=== PATIENT | male | born 1965 | race Hispanic/Latino ===

== ENCOUNTER 2017-12-12 20:44 | Emergency (ER) | payer SELFPAY ==
[~2017-12-12] VITALS: Ht 172.7 cm; Wt 93.0 kg
[2017-12-12 21:52] LABS: BASOPHILS # (AUTO) 0.1 (0.0-0.1); BASOPHILS % 0.7 % (0.0-1.0); EOSINOPHILS # (AUTO) 0.7 (0.0-0.4); EOSINOPHILS % 9.6 % (0.0-6.0); HEMATOCRIT 46.5 % (38.2-49.6); LYMPHOCYTES # (AUTO) 1.8 (1.0-3.2); LYMPHOCYTES % 24.7 % (18.0-39.1); MEAN CORPUSCULAR HGB CONC 34.4 g/dL (31-35); MEAN CORPUSCULAR VOLUME 81.3 fL (81-99); MONOCYTES # (AUTO) 0.6 (0.2-0.8); MONOCYTES % 8.1 % (4.4-11.3); NEUTROPHILS # (AUTO) 4.1 (2.1-6.9); NEUTROPHILS % 56.4 % (38.7-80.0); PLATELET COUNT 248 x10e3/uL (140-360); RED BLOOD COUNT 5.72 x10e6/uL (4.3-5.7); RED CELL DISTRIBUTION WIDTH 13.3 % (11.7-14.4)
[2017-12-12 22:11] LABS: ALANINE AMINOTRANSFERASE 25 IU/L (0-55); ALBUMIN 3.9 g/dL (3.5-5.0); ALBUMIN/GLOBULIN RATIO 1.1 (0.8-2.0); ALKALINE PHOSPHATASE 109 IU/L (40-150); ANION GAP 13.4 mmol/L (8-16); BLOOD UREA NITROGEN 13 mg/dL (7-26); BUN/CREATININE RATIO 14 (6-25); CALCIUM 9.5 mg/dL (8.4-10.2); CARBON DIOXIDE 27 mmol/L (22-29); CHLORIDE 100 mmol/L (98-107); CREATININE, SERUM 0.93 mg/dL (0.72-1.25); EST GLOMERULAR FILTRATION RATE > 60 ML/MIN (60-); GLUCOSE 253 mg/dL (74-118); POTASSIUM 4.4 mmol/L (3.5-5.1); SODIUM 136 mmol/L (136-145)
[2017-12-12 22:36] LABS: BILIRUBIN,URINE NEGATIVE (NEGATIVE); CLARITY,URINE CLOUDY (CLEAR); COLOR,URINE YELLOW (YELLOW); KETONES,URINE NEGATIVE (NEGATIVE); LEUKOCYTE ESTERASE ,URINE NEGATIVE (NEGATIVE); NITRITE,URINE NEGATIVE (NEGATIVE); PROTEIN,URINE DIPSTICK NEGATIVE (NEGATIVE); URINE UROBILINOGEN 0.2 mg/dL (0.2 - 1)
[2017-12-12 22:48] LABS: AMORPHOUS SEDIMENT,URINE MANY (FEW)
[2017-12-12 22:49] LABS: BACTERIA,URINE RARE /HPF
--- NOTE | 2017-12-12 22:49 | Diagnostic Imaging Report ---
History:High blood sugar Comparison studies:None Technique: Axial images were obtained from the skull base to the vertex. Coronal and sagittal images reconstructed from the axial data. Intravenous contrast: None Dose modulation, iterative reconstruction, and/or weight based adjustment of the mA/kV was utilized to reduce the radiation dose to as low as reasonably achievable. Findings: Scalp/skull: No abnormalities. Extra-axial spaces: No masses. No fluid collections. Brain sulci: Age-appropriate. Ventricles: Age-appropriate. No hydrocephalus. Parenchyma: Few small hypodensities in the supratentorial white matter are small vessel ischemic changes. Small chronic lacunar infarct at the left putamen No masses, hemorrhage, acute or chronic cortical vascular insults. Sellar/suprasellar region: No abnormalities. Craniocervical junction: Patent foramen magnum. No Chiari one malformation. Incidental findings: Atherosclerotic calcifications in the carotid siphons . Impression: No acute abnormalities. Chronic findings: 1. Mild supratentorial white matter small vessel ischemic changes. Signed by: DR Travis Christopher M.D. on 12/12/2017 10:45 PM
--- NOTE | 2017-12-12 23:06 | Diagnostic Imaging Report ---
EXAMINATION: CHEST 2 VIEWS INDICATION: Headache, nausea, dizziness COMPARISON: None FINDINGS: TUBES and LINES: None. LUNGS: Lungs are well inflated. Lungs are clear. There is no evidence of pneumonia or pulmonary edema. PLEURA: No pleural effusion or pneumothorax. HEART AND MEDIASTINUM: The cardiomediastinal silhouette is unremarkable. BONES AND SOFT TISSUES: No acute osseous lesion. Soft tissues are unremarkable. UPPER ABDOMEN: No free air under the diaphragm. IMPRESSION: No acute thoracic abnormality. Signed by: Dr. Gray Valerio M.D. on 12/12/2017 11:02 PM
[2017-12-13] MEDS ORDERED: SODIUM CHLORIDE 0.9% 1000ML 1,000 ML ONE (01:48)
[2017-12-13] MEDS ORDERED: SODIUM CHLORIDE 0.9% 1000ML 1,000 ML IV ONE (02:00)
== END 2017-12-13 02:11 | disposition home or self-care (01) ==
LOC: ER 20:44
DX: G44.1 Vascular headache, not elsewhere classified (principal); E11.65 Type 2 diabetes mellitus with hyperglycemia; E78.5 Hyperlipidemia, unspecified; Z79.84 Long term (current) use of oral hypoglycemic drugs
CPT/HCPCS: 36415; 70450; 71046; 80053; 81001; 85025; 99283; J7030

== ENCOUNTER 2019-07-27 20:16 | Emergency (ER) | payer SELFPAY ==
[~2019-07-27] VITALS: Ht 172.7 cm; Wt 93.0 kg
--- OUTSIDE RECORDS SUMMARY | 2019-07-27 20:18 | XMS REPORT | Clinical Summary ---
Author Author [facility] ict Organization [facility] ict Address Unknown Phone Unavailable Care Team Providers Care Mergers And Acquisitions Attorney Name Role Phone PCP Unavailable Allergies No Known Allergies Medications End Date Status Medication Sig Dispensed Refills Start Date Active ibuprofen (MOTRIN) 800 mg Take 1 tablet 30 tablet 0 tabletIndications: by mouth 9 Epigastric pain every 6 hours as needed for Pain. Active Problems Not on file Social History Date Tobacco Use Types Packs/Day Years Used Never Assessed Sex Assigned at Date Recorded Not on file Industry Job Start Date Occupation Not on file Not on file Not on file Travel End Travel History Travel Start No recent travel history available. Last Filed Vital Signs Not on file Plan of Treatment Health Maintenance Due Date Last Done Comments Colorectal Cancer Scrn 2015 Annual (FIT/FOBT) Age 50 to 75 IMM Influenza Seasonal 12/13/2019Dec to May (>/= 19 yrs) Results Not on fileafter 07/26/2018 Insurance Type Payer Benefit Subscriber ID Effective Phone Address Plan / Dates Group [facility] SELF-PAY SELF-PAY xxxxxxxxx 2018- [phone] [id number] [place] [address]
--- OUTSIDE RECORDS SUMMARY | 2019-07-27 20:18 | XMS REPORT ---
Author Author [facility] t Organization [facility] Address [address] [place] [address] Phone Unavailable Care Team Providers Care Environmental Monitoring Technician Name Role Phone NO, PCP PCP Unavailable Violeta NEGRON Attphys Unavailable Problems This patient has no known problems. Allergies, Adverse Reactions, Alerts This patient has no known allergies or adverse reactions. Social History Social Habit Start Date Stop Date Quantity Comments Source Sex Assigned At [facility] Medications Ordered Medication Name Filled Medication Name Start Date Stop Da te Current Medication? Ordering Clinician Indication Dosage Frequency Signature (SIG) Comments Components Source ibuprofen (MOTRIN) 800 mg tablet 2018-04-24 00:00:00 Yes [id number] 800mg Take 1 tablet by mouth every 6 hours as needed for Pain. [facility] Procedures Procedure Date / Time Performed Performing Clinician [facility] e Computed tomography of brain without radiopaque contrast 201 10-21-00 00:00:00 SAIMA NEGRON [facility] X-ray of chest, two views 2017-12-12 00:00:00 MEJIA NEGRON [facility] Plan of Care Planned Activity Planned Date Details Comments Source Future Scheduled Test 2019-12-13 00:00:00 IMM Influenza Seas onal Dec to May (>/= 19 yrs) [code = IMM Influenza Seasonal Dec to May (>/= 19 yrs)] [facility] Future Scheduled Test 2015 00:00:00 Colorectal Cancer Scrn Annual (FIT/FOBT) Age 50 to 75 [code = Colorectal Cancer Scrn Annual (FIT/FOBT) Age 50 to 75] [facility] Encounters Start Date/Time End Date/Time Encounter Type Admission Type Attendi [facility] Care Department Encounter ID Source 2018-08-01 00:00:00 2018-08-01 00:00:00 Outpatient [facility] [id number] [facility] 2018-04-23 23:30:01 2018-04-23 23:30:01 Emergency [facility] [id number] [facility] 2018-04-23 21:02:51 2018-04-23 21:02:51 Emergency [facility] [id number] [facility] 2018-04-23 19:02:19 2018-04-23 19:02:19 Emergency [facility] [id number] [facility] 2017-12-12 20:44:00 2017-12-13 02:11:00 Departed Emergency Room 1 SAIMA NEGRON [facility] [id number] [facility] Results Test Description Test Time Test Comments Results Result Comments Source CHEST 2 VIEWS 2017-12-12 23:02:00 [place] [address] Patient Name: NICOLE SHAH MR #: [id number] : 1965 Age/Sex: 52/M Req #: [id number] Adm Physician: Ordered by: SAIMA NEGRON MD Report #: [id number] Location: ER Room/Bed: Procedure: [id number] DX/CHEST 2 VIEWS Exam Date: 12/12/17 Exam Time: 2230 REPORT STATUS: Signed EXAMINATION: CHEST 2 VIEWS INDICATION: Headache, nausea, dizziness COMPARISON: None FINDINGS: TUBES and LINES: None. LUNGS: Lungs are well inflated. Lungs are clear. There is no evidence of pneumonia or pulmonary edema. PLEURA: No pleural effusion or pneumothorax. HEART AND MEDIASTINUM: The cardiomediastinal silhouette is unremarkable. BONES AND SOFT TISSUES: No acute osseous lesion. Soft tissues are unremarkable. UPPER ABDOMEN: No free air under the diaphragm. IMPRESSION: No acute thoracic abnormality. Signed by: Dr. Gray Valerio M.D. on 12/12/2017 11:02 PM Dictated By: GRAY GOMEZ MD 01 Transcribed By: LANDNO on 12/12/172301 COPY TO: SAIMA NEGRON MD Urine WBC 2017-12-12 22:49:00 Test Item Urine WBC (test code = 5821-4) NONE 0-5 [facility] [id number] 22:49:00* Test Item Value Reference Range Interpretation Comments Urine RBC (test code = 82719-7) NONE 0-5 [facility] [id number] 22:49:00* Test Item Value Reference Range Interpretation Comments Urine Bacteria (test code = 06956-9) RARE NONE [facility] Epithelial [id number] 22:49:00 * Test Item Value Reference Range Interpretation Comments Urine Epithelial Cells (test code = 78944-5) NONE NONE [facility] Amorphous [id number] 22:49:00* Test Item Value Reference Range Interpretation Comments Urine Amorphous Sediment (test code = 8246-1) MANY FEW [facility] BRAIN [id number] 22:43:00 [facility] [address] [address] Patient Name: NICOLE SHAH MR #: [id number] : 1965 Age/Sex: 52/M Req #: [id number] Adm Physician: Ordered by: SAIMA NEGRON MD Report #: [id number] Location: ER Room/B ed: Procedure: [id number] CT/CT BRAIN WO Exam Date: Exam Time: 4 REPORT STATUS: Signed History:High blood sugar Comparison studies:None Technique: Axial alexandra ges were obtained from the skull base to the vertex. Coronal and sagittal imag es reconstructed from the axial data. Intravenous contrast: None Dose modula tion, iterative reconstruction, and/or weight based adjustment of the mA/kV wa s utilized to reduce the radiation dose to as low as reasonably achievable. Findings: Scalp/skull: No abnormalities. Extra-axial spaces: No masses. No fluid collections. Brain sulci: Age-appropriate. Ventricle s: Age-appropriate. No hydrocephalus. Parenchyma: Few small hypodensitie s in the supratentorial white matter are small vessel ischemic changes. Small chronic lacunar infarct at the left putamen No masses, hemorrhage, acute or ch ronic cortical vascular insults. Sellar/suprasellar region: No abnormalitie s. Craniocervical junction: Patent foramen magnum. No Chiari one malformation . Incidental findings: Atherosclerotic calcifications in the carotid siph ons . Impression: No acute abnormalities. Chronic findings: 1. Mild supratentorial white matter small vessel ischemic changes. Signed by: DR Travis Christopher M.D. on 12/12/2017 10:45 PM Dictated By: TRAVIS TRIPP MD 44 Transcribed By: LANDON on 12/12/172244 COPY TO: SAIMA NEGRON MD Urine [id number] 22:36:00* Test Item Value Reference Range Interpretation Comments Urine Color (test code = 5778-6) YELLOW YELLOW [facility] [id number] 22:36:00* Test Item Value Reference Range Interpretation Comments Urine Clarity (test code = 94859-6) CLOUDY CLEAR [facility] Specific [id number] 22:36:00 * Test Item Value Reference Range Interpretation Comments Urine Specific Canadian (test code = 5811-5) 1.015 1.010-1.02 5 [facility] [id number] 22:36:00* Test Item Value Reference Range Interpretation Comments Urine pH (test code = 36197-0) 6 5-7 [facility] Leukocyte Spvpijsp8588-94-37 22:36:00* Test Item Value Reference Range Interpretation Comments Urine Leukocyte Esterase (test code = 5799-2) NEGATIVE NEGATIVE [facility] Mastdkn6342-23-13 22:36:00* Test Item Value Reference Range Interpretation Comments Urine Nitrite (test code = 23714-4) NEGATIVE NEGATIVE [facility] Wvfbtjf5834-35-86 22:36:00* Test Item Value Reference Range Interpretation Comments Urine Protein (test code = 5804-0) NEGATIVE NEGATIVE [facility] Glucose (UA)2017-12-12 22:36:00* Test Item Value Reference Range Interpretation Comments Urine Glucose (UA) (test code = 2349-9) 3+ NEGATIVE [facility] Qirvpuy8459-03-07 22:36:00* Test Item Value Reference Range Interpretation Comments Urine Ketones (test code = 50113-6) NEGATIVE NEGATIVE [facility] Ljkwwgpyogww1523-63-29 22:36:00* Test Item Value Reference Range Interpretation Comments Urine Urobilinogen (test code = 32573-6) 0.2 0.2-1 [facility] Zveqpcpnk5037-55-63 22:36:00* Test Item Value Reference Range Interpretation Comments Urine Bilirubin (test code = 1978-6) NEGATIVE NEGATIVE [facility] Fimdw6732-18-08 22:36:00* Test Item Value Reference Range Interpretation Comments Urine Blood (test code = 37109-7) NEGATIVE NEGATIVE [facility]odium Ortlh9707-34-61 22:13:00* Test Item Value Reference Range Interpretation Comments Sodium Level (test code = 2951-2) 136 136-145 [facility]assium Gzejq1834-92-92 22:13:00* Test Item Value Reference Range Interpretation Comments Potassium Level (test code = 2823-3) 4.4 3.5-5.1 [facility]Chloride Bpvfx7401-45-05 22:13:00* Test Item Value Reference Range Interpretation Comments Chloride Level (test code = 2075-0) 100 98-107 [facility]landsCarbon Dioxide Qhtpu1265-28-14 22:13:00* Test Item Value Reference Range Interpretation Comments Carbon Dioxide Level (test code = 2028-9) 27 22-29 [facility]landsAnion [id number] 22:13:00* Test Item Value Reference Range Interpretation Comments Anion Gap (test code = 64120-1) 13.4 8-16 [facility]lands[facility] Urea Gvofvfvs4517-54-01 22:13:00* Test Item Value Reference Range Interpretation Comments Blood Urea Nitrogen (test code = 3094-0) 13 7-26 [facility]landsCreatinine2018-10-01 22:13:00* Test Item Value Reference Range Interpretation Comments Creatinine (test code = 2160-0) 0.93 0.72-1.25 [facility]BUN/Creatinine Hzpcl6241-78-23 22:13:00* Test Item Value Reference Range Interpretation Comments BUN/Creatinine Ratio (test code = 3097-3) 14 6-25 [facility]landsEstimat Glomerular Filtration Rate 2017-12-12 22:13:00* Test Item Value Reference Range Interpretation Comments Estimat Glomerular Filtration Rate (test code = 864017710) 60- >60 Ranges were taken from the National Kidney Disease Education Program and the [place] randolph healthal [employer] literature.Reference ranges:60 or greater: Fjtzlr66-12 ( for 3 consecutive months): Chronic kidney disease 15 or less: Kidney failureTexas Children's Hospital The WoodlandsGlucose Yyzif1151-75-40 22:13:00* Test Item Value Reference Range Interpretation Comments Glucose Level (test code = EOU2279) 253 74-118 [facility]landsCalcium Clvog2797-04-15 22:13:00* Test Item Value Reference Range Interpretation Comments Calcium Level (test code = 94773-0) 9.5 8.4-10.2 [facility]landsTotal Awsnoyyqx9097-36-94 22:13:00* Test Item Value Reference Range Interpretation Comments Total Bilirubin (test code = 1975-2) 0.5 0.2-1.2 [facility]landsAspartate Amino Transf (AST/SGOT) 2017-12-12 22:13:00* Test Item Value Reference Range Interpretation Comments Aspartate Amino Transf (AST/SGOT) (test code = Aspartate Amino Transf (AST/SGOT)) 15 5-34 [facility]landsAlanine Aminotransferase (ALT/SGPT) 2017-12-12 22:13:00* Test Item Value Reference Range Interpretation Comments Alanine Aminotransferase (ALT/SGPT) (test code = 1742-6) 25 0-55 [facility]landsTotal Hpulvoo3766-71-27 22:13:00* Test Item Value Reference Range Interpretation Comments Total Protein (test code = 2885-2) 7.6 6.5-8.1 [facility]landsAlbumin2018-10-01 22:13:00* Test Item Value Reference Range Interpretation Comments Albumin (test code = 1751-7) 3.9 3.5-5.0 [facility]landsGlobulin2018-10-01 22:13:00* Test Item Value Reference Range Interpretation Comments Globulin (test code = 41521-3) 3.7 2.3-3.5 [facility]landsAlbumin/Globulin Zyhna9892-45-93 22:13:00 * Test Item Value Reference Range Interpretation Comments Albumin/Globulin Ratio (test code = 1759-0) 1.1 0.8-2.0 [facility]landsAlkaline Jzrdaqcdvsg6051-99-69 22:13:00* Test Item Value Reference Range Interpretation Comments Alkaline Phosphatase (test code = 6768-6) 109 40-150 [facility]landsWhite Blood Zmbpn1159-21-37 21:55:00* Test Item Value Reference Range Interpretation Comments White Blood Count (test code = 6690-2) 7.30 4.8-10.8 [facility]landsRed Blood Mngnq2982-49-41 21:55:00* Test Item Value Reference Range Interpretation Comments Red Blood Count (test code = 789-8) 5.72 4.3-5.7 [facility]landsHemoglobin2018-10-01 21:55:00* Test Item Value Reference Range Interpretation Comments Hemoglobin (test code = 71262-1) 16.0 14.0-18.0 [facility]landsHematocrit2018-10-01 21:55:00* Test Item Value Reference Range Interpretation Comments Hematocrit (test code = 4544-3) 46.5 38.2-49.6 [facility]landsMean Corpuscular Jfwvdm0669-67-24 21:55:00* Test Item Value Reference Range Interpretation Comments Mean Corpuscular Volume (test code = 787-2) 81.3 81-99 [facility]landsMean Corpuscular Zslljqhmpx3608-81-70 21:55:00* Test Item Value Reference Range Interpretation Comments Mean Corpuscular Hemoglobin (test code = 785-6) 28.0 28-32 [facility] Hemoglobin Concent 2017-12-12 21:55:00* Test Item Value Reference Range Interpretation Comments Mean Corpuscular Hemoglobin Concent (test code = 786-4) 34.4 31-35 [facility]landsRed Cell Distribution Hurlo5010-82-39 21:55:00* Test Item Value Reference Range Interpretation Comments Red Cell Distribution Width (test code = 60237-9) 13.3 11.7 -14.4 [facility]landsPlatelet [id number] 21:55:00* Test Item Value Reference Range Interpretation Comments Platelet Count (test code = 777-3) 248 140-360 [facility]landsNeutrophils (%) (Auto)2017-12-12 21:55:00 * Test Item Value Reference Range Interpretation Comments Neutrophils (%) (Auto) (test code = 94861-8) 56.4 38.7-80.0 [facility]landsLymphocytes (%) (Auto)2017-12-12 21:55:00 * Test Item Value Reference Range Interpretation Comments Lymphocytes (%) (Auto) (test code = 736-9) 24.7 18.0-39.1 [facility]landsMonocytes (%) (Auto)2017-12-12 21:55:00* Test Item Value Reference Range Interpretation Comments Monocytes (%) (Auto) (test code = 5905-5) 8.1 4.4-11.3 [facility]landsEosinophils (%) (Auto)2017-12-12 21:55:00 * Test Item Value Reference Range Interpretation Comments Eosinophils (%) (Auto) (test code = 713-8) 9.6 0.0-6.0 [facility]landsBasophils (%) (Auto)2017-12-12 21:55:00* Test Item Value Reference Range Interpretation Comments Basophils (%) (Auto) (test code = 706-2) 0.7 0.0-1.0 [facility]landsIM GRANULOCYTES %2017-12-12 21:55:00* Test Item Value Reference Range Interpretation Comments IM GRANULOCYTES % (test code = IM GRANULOCYTES %) 0.5 0.0- 1.0 [facility]landsNeutrophils # (Auto)2017-12-12 21:55:00* Test Item Value Reference Range Interpretation Comments Neutrophils # (Auto) (test code = 751-8) 4.1 2.1-6.9 [facility]landsLymphocytes # (Auto)2017-12-12 21:55:00* Test Item Value Reference Range Interpretation Comments Lymphocytes # (Auto) (test code = 28733-4) 1.8 1.0-3.2 [facility]landsMonocytes # (Auto)2017-12-12 21:55:00* Test Item Value Reference Range Interpretation Comments Monocytes # (Auto) (test code = 742-7) 0.6 0.2-0.8 [facility]landsEosinophils # (Auto)2017-12-12 21:55:00* Test Item Value Reference Range Interpretation Comments Eosinophils # (Auto) (test code = 711-2) 0.7 0.0-0.4 [facility]landsBasophils # (Auto)2017-12-12 21:55:00* Test Item Value Reference Range Interpretation Comments Basophils # (Auto) (test code = 704-7) 0.1 0.0-0.1 [facility]landsAbsolute Immature Granulocyte (auto 2017-12-12 21:55:00* Test Item Value Reference Range Interpretation Comments Absolute Immature Granulocyte (auto (juan t code = Absolute Immature Granulocyte (auto) 0.04 0-0.1 [facility]
[2019-07-27 20:25] VITALS: BP 138/79
--- NOTE | 2019-07-27 20:33 | Emergency Department Note ---
History of Present Illnes History of Present Illness Chief Complaint: Abdominal Complaints History of Present Illness This is a 54 year old male who presents generalized abd pain, worse on left and constipation for past 3 weeks, states pain is just discomfort with occasional cramping, last bm 3 days ago and he states it was only a small amount of very hard stool. denies fever, n/v/d . Historian: Patient, Family Member Arrival Mode: Car Onset (how long ago): week(s) (3) Location: abdomen Quality: discomfort with occasional cramping Radiation: non-radiation Severity: mild Onset quality: gradual Duration (how long): week(s) (3) Timing of current episode: constant Progression: waxing and waning Chronicity: new Relieving factors: none Exacerbating factors: none Associated symptoms: denies other symptoms Treatments prior to arrival: none Past Medical/Family History Physician Review I have reviewed the patient's past medical and family history. Any updates have been documented here. Past Medical History Recent Fever: No Clinical Suspicion of Infectio: No New/Unexplained Change in Ment: No Past Medical History: Diabetes, Hyperlipedemia Past Surgical History: None Social History Smoking Cessation: Never Smoker Counseling Performed: No Alcohol Use: None Any Illegal Drug Use: No TB Exposure/Symptoms: No Physically hurt or threatened: No Family History Family history of heart diseas: No Other Last Tetanus: UTD Any Pre-Existing Lines (PICC,: No Is patient up to date on immun: Yes Last Flu: DENIES Last Pneumovax: DENIES Review of Systems Review of Systems Constitutional: no symptoms EENTM: no symptoms Cardiovascular: no symptoms Respiratory: no symptoms Gastrointestinal: as per HPI Genitourinary: no symptoms Musculoskeletal: no symptoms Neurological: no symptoms Psychological: no symptoms Endocrine: no symptoms Hematological/Lymphatic: no symptoms Review of other systems All other systems reviewed and negative. Physical Exam Related Data Allergies: Coded Allergies: No Known Allergies (Unverified , 12/12/17) Triage Vital Signs Vital Signs Date Time Temp Pulse Resp B/P (MAP) Pulse Ox O2 Delivery O2 Flow Rate FiO2 07/27/19 20:19 98.0 82 17 141/83 97 Vital signs reviewed: Yes Physical Exam CONSTITUTIONAL Constitutional: well-developed, well-nourished HENT HENT: normocephalic, atraumatic, oropharynx clear/moist, nose normal HENT L/R: left ext ear normal, right ext ear normal EYES Eyes: PERRL, conjunctivae normal NECK Neck: ROM normal PULMONARY Pulmonary: effort normal, breath sounds normal CARDIOVASCULAR Cardiovascular: regular rhythm, heart sounds normal, capillary refill normal, normal rate GASTROINTESTINAL Abdominal: soft, nontender, bowel sounds normal GENITOURINARY Genitourinary: exam deferred SKIN Skin: warm, dry MUSCULOSKELETAL Musculoskeletal: ROM normal NEUROLOGICAL Neurological: alert, oriented x 3, no gross motor or sensory deficits PSYCHOLOGICAL Psychological: mood/affect normal, judgement normal Results Imaging Impressions kub interpreted by me clonic stool burden c/w stool burden Critical Care Time Subsequent provider I assumed direction of critical care for this patient from another provider of my specialty. Assessment & Plan Assessment & Plan Problems: (1) Constipation Assessment & Plan pt with c/o constipation and abdominal discomfort for 3 weeks, kub ordered to eval extent of constipation and to eval for fecal impaction Depart Disposition: HOME, SELF-CARE Last Vital Signs Date Time Temp Pulse Resp B/P (MAP) Pulse Ox O2 Delivery O2 Flow Rate FiO2 07/27/19 20:19 98.0 82 17 141/83 97 SAIMA NEGRON MD July 27, 2019 20:33
--- NOTE | 2019-07-27 21:24 | Diagnostic Imaging Report ---
EXAM: Abdomen Radiograph 1 View(s) INDICATION: Abdominal pain COMPARISON: None FINDINGS: The bowel gas pattern is nonspecific. Prominent formed stool within the colon. No abnormal soft tissue calcification. No free intraperitoneal air. No acute osseous abnormality. IMPRESSION: No acute abdominal radiographic abnormality. Signed by: John Reyna MD on 07/27/2019 9:20 PM
--- NOTE | 2019-07-27 22:09 | NUR ---
Note lorenzogenesis in EDM - 07/27/19 at 2213 by CORDELL US TECH HAS ARRIVED, PT CAME OUT OF ROOM ABOUT 10 MIN AGO AND SAID SHE HADCALLED HER DOCTOR FROM WITHIN HER ROOM AND WAS TOLD BY HER PCP TO GO HOME AND THAT HE WOULD ORDER AN US FOR PATIENT LATER IN WEEK IF HEMATOMA GOT WORSE? SHE STATES SHE BELA IGLESIAS WANT TO WAIT THE 2 HOURS ( SHE WAS TOLD BY MD) IT WOULD TAKE FOR THE US TECH TO ARRIVE, EXPLAINED TO PATIENT THAT WHAT DOCTOR MEANT WAS THAT IT MIGHT TAKE A TOTAL OF 2 HOURS FOR TECH TO ARRIVE, PROCEDURE TO BE DONE, AND RESULTS TO BE RESULTED, PT AGREED TO WAIT AND GET US DONE AND THEN ASKED DOCTOR IF SHE COULD GO HOME AND WE CAN CALL HER WITH RESULTS? MD TO REVIEW US WITH TECH AND GIVE PT PRELIMINARY FINDINGS SO THAT PT COULD LEAVE AFTER US COMPLETED
== END 2019-07-27 21:34 | disposition home or self-care (01) ==
LOC: ER 20:16
DX: R10.84 Generalized abdominal pain (principal); K59.00 Constipation, unspecified; E11.65 Type 2 diabetes mellitus with hyperglycemia; E78.5 Hyperlipidemia, unspecified
CPT/HCPCS: 74019; 99283

== ENCOUNTER → 2019-08-07 | Day surgery (SDC) | payer OTHER ==
[~2019-08-07] MED LIST: DONNATAL/LIDOCAINE/MAALOX 30 ML SUSP PO ONE; LIDOCAINE HCL 2% LOCAL INJ 5 ML SDV VIAL INJ ONE; METFORMIN HCL500 MG PO; PROPOFOL IV EMULSION 10 MG/ML 20 ML VIAL ONE
[2019-08-07 12:00] VITALS: BP 113/79
--- NOTE | 2019-08-07 15:15 | Operative Report ---
DATE OF PROCEDURE: 08/07/2019 SURGEON: Adrian Long MD PROCEDURE: EGD with biopsies. INDICATIONS FOR PROCEDURE: Dyspepsia, upper abdominal pain. MEDICATIONS: The patient was done under MAC. Please see anesthesiologist's note. PROCEDURE IN DETAIL: With the patient in left lateral decubitus position, a flexible fiberoptic Olympus gastroscope was introduced into the esophagus under direct visualization without any difficulty. There was some patchy erythema noted in distal esophagus. The scope was then advanced with ease into the stomach, traversing a small hiatal hernia. Mucosa overlying the antrum and the body revealed some patchy erythema and low-grade to moderate edema, biopsies were obtained, sent to stain for H pylori. The pylorus was of normal contour and shape, was intubated with ease and the scope was advanced all the way to the second portion of the duodenum. The scope was then withdrawn slowly. Mucosa overlying the proximal second portion appeared to be within normal limits. The mucosa overlying the duodenal bulb revealed some patchy intense erythema. The scope was then withdrawn back into the stomach and retroflexed, mucosa overlying the fundus and cardia appeared to be within normal limits. The scope was then straightened out, it was subsequently withdrawn. Patient tolerated the procedure well. IMPRESSION: 1. Distal esophagitis, mild. 2. Small hiatal hernia. 3. Gastritis, biopsied, biopsies sent to stain for H pylori. 4. Duodenitis, bulb, mild. PLAN: Follow up histology. Initiate Protonix 40 mg one p.o. q.a.m. a.c. If upper abdominal pain persist, the patient will need gallbladder workup. Adrian Long MD [facility] [place] /[id number]
== END | disposition home or self-care (01) ==
LOC: OR 09:42
PROVIDERS: ATTEND Internal Medicine Gastroenterology
DX: K29.70 Gastritis, unspecified, without bleeding (principal); K20.9 Esophagitis, unspecified; K44.9 Diaphragmatic hernia without obstruction or gangrene; K29.80 Duodenitis without bleeding; K62.5 Hemorrhage of anus and rectum; K59.09 Other constipation; K42.9 Umbilical hernia without obstruction or gangrene; E11.9 Type 2 diabetes mellitus without complications; Z01.810 Encounter for preprocedural cardiovascular examination; Z01.812 Encounter for preprocedural laboratory examination; Z11.59 Encounter for screening for other viral diseases; Z79.84 Long term (current) use of oral hypoglycemic drugs; Z79.82 Long term (current) use of aspirin
CPT/HCPCS: 36415; 43239; 82948; 87635; 88305; 88312; 93005; J2001; J2704